=== PATIENT | female | born 1960 | race Two or more races ===

== ENCOUNTER 2020-04-06 13:25 | Emergency (ER) | payer MEDICAID ==
[~2020-04-06] VITALS: Ht 154.9 cm; Wt 63.5 kg
[2020-04-06 13:30] VITALS: BP 145/66
--- NOTE | 2020-04-06 13:30 | NUR ---
ED Nurse Note: Pt picked up from [employer] store and brought in by RA [id number] due to dizziness with no LOC started today. Hx of DM and BS check upon ED arrival 269. Also noted boil on left inner thigh and pt states she had it x 1 week. AAO x4, ambulatory, follows commands and respirations are even and unlabored.
[2020-04-06] MEDS ORDERED: cefTRIAXone 1 GM in NS 55 ML IVPB ONE (13:45)
--- NOTE | 2020-04-06 14:02 | NUR ---
ED Nurse Note: Patient taken for CT and stable.
[2020-04-06 14:04] LABS: BASOPHILS % (AUTO) 2.1 % (0.0-2.0); EOSINOPHILS % (AUTO) 1.2 % (0.0-3.0); HEMATOCRIT 44.7 % (37.0-47.0); HEMOGLOBIN 14.9 G/DL (12.0-16.0); LYMPHOCYTES % (AUTO) 32.4 % (20.0-45.0); MEAN CORPUSCULAR VOLUME 85 FL (80-99); MONOCYTES % (AUTO) 6.4 % (1.0-10.0); NEUTROPHILS % (AUTO) 57.8 % (45.0-75.0); PLATELET COUNT 250 K/UL (150-450); RED BLOOD COUNT 5.28 M/UL (4.20-5.40); RED CELL DISTRIBUTION WIDTH 11.8 % (11.6-14.8); WHITE BLOOD COUNT 9.8 K/UL (4.8-10.8)
--- NOTE | 2020-04-06 14:11 | NUR ---
ED Nurse Note: patient came back from CT in stable condition.
[2020-04-06 14:17] LABS: APPEARANCE,URINE CLOUDY; BILIRUBIN, URINE NEGATIVE (NEGATIVE); GLUCOSE, URINE (UA) 4+ (NEGATIVE); KETONES,URINE NEGATIVE (NEGATIVE); LEUKOCYTE ESTERASE ,URINE NEGATIVE (NEGATIVE); NITRITE,URINE NEGATIVE (NEGATIVE); PH,URINE 5 (4.5-8.0); PROTEIN,URINE 2+ (NEGATIVE); UROBILINOGEN,URINE NORMAL MG/DL (0.0-1.0)
[2020-04-06 14:21] LABS: COLOR,URINE YELLOW
[2020-04-06 14:37] LABS: ANION GAP 10 mmol/L (5-15); BLOOD UREA NITROGEN 19 mg/dL (7-18); CALCIUM 9.6 MG/DL (8.5-10.1); CARBON DIOXIDE 28 MMOL/L (21-32); CHLORIDE 102 MMOL/L (98-107); CREATININE 0.7 MG/DL (0.55-1.30); SODIUM 140 MMOL/L (136-145)
[2020-04-06 14:48] LABS: ALANINE AMINOTRANSFERASE 33 U/L (12-78); ALBUMIN 3.9 G/DL (3.4-5.0); ALBUMIN/GLOBULIN RATIO 0.9 (1.0-2.7); ALKALINE PHOSPHATASE 115 U/L (46-116); ASPARTATE AMINO TRANSFERASE 19 U/L (15-37); BILIRUBIN,TOTAL 1.1 MG/DL (0.2-1.0)
[2020-04-06 14:57] LABS: BILIRUBIN,DIRECT 0.1 MG/DL (0.0-0.3)
--- NOTE | 2020-04-06 15:00 | NUR ---
ED Nurse Note: Consent for Incision and Drainage on left inner thigh obtained. RN and Mathew at the bed side.
--- NOTE | 2020-04-06 15:05 | NUR ---
ED Nurse Note: Mathew/AYDEE explained to patient that she needs to inject a lidocaine to numb the left inner thigh before Incision and draining. Expected pain due to lidocaine injection explained to patient by Mathew.
--- NOTE | 2020-04-06 15:05 | Diagnostic Imaging Report ---
EXAM: XR Chest, 1 View CLINICAL HISTORY: PAIN TECHNIQUE: Frontal view of the chest. COMPARISON: No relevant prior studies available. FINDINGS: Lungs: Unremarkable. The lungs appear clear. No focal consolidation. Pleural space: Unremarkable. The costophrenic angles are sharp. No visible pneumothorax. Heart: Unremarkable. No cardiomegaly. Mediastinum: Unremarkable. Bones/joints: Unremarkable. Tubes, lines and devices: Telemetry leads overlie the thorax. IMPRESSION: No acute radiographic findings.
--- NOTE | 2020-04-06 15:11 | Diagnostic Imaging Report ---
EXAM: CT Head Without Intravenous Contrast CLINICAL HISTORY: DIZZY TECHNIQUE: Axial computed tomography images of the head/brain without intravenous contrast. CTDI is 53.40 mGy and DLP is 1072.20 mGy-cm. One or more of the following dose reduction techniques were used: automated exposure control, adjustment of the mA and/or kV according to patient size, use of iterative reconstruction technique. Coronal reformatted images were created and reviewed. COMPARISON: No relevant prior studies available. FINDINGS: Brain: Unremarkable. No evidence of acute intracranial hemorrhage. No significant white matter disease. No edema. No mass effect or midline shift. Ventricles: Unremarkable. No ventriculomegaly. Bones/joints: Unremarkable. No depressed skull fracture. Soft tissues: Unremarkable. Sinuses: Unremarkable as visualized. Visualized paranasal sinuses are clear. No sinus air-fluid levels. Mastoid air cells: Unremarkable as visualized. No mastoid effusion. IMPRESSION: Unremarkable noncontrast CT of the head/brain.
[2020-04-06] MEDS ORDERED: Ketorolac 30mg Inj IV ONE (15:15)
[2020-04-06 15:30] VITALS: BP 139/84
--- NOTE | 2020-04-06 15:30 | NUR ---
ED Nurse Note: Patient is AAO x4 and wants to leave the ER and AMA form was signed. Mathew/AYDEE and ER charge nurse are aware. Patient is aware of potential complications of not being hospitalized. Removed ID band/IV access. Patient left with all her belongings.
--- NOTE | 2020-04-06 15:31 | Emergency Room Report ---
History of Present Illness General Chief Complaint: Dizziness Source: EMS Present Illness HPI 59-year-old female with history of diabetes, hypertension currently taking medication brought in by Paramedics due to passing out in the middle of the street due to dizziness. Patient does not recall whether she hit her head or not. Patient reports that she started feeling dizzy this morning without any vertigo or chest pain and was on her way to go see her doctor or go to a different hospital as she felt very dizzy and middle of the street on [facility] and passed out. Paramedics were called by bystanders. Denies any chest pain shortness of breath. Denies any dizziness at this moment. Denies any headache and blurred vision. Denies abdominal pain, nausea vomiting diarrhea, cough and congestion. Denies urinary symptoms. Also complains of an abscess in the left inner thigh times few days. Denies any pain radiation tingling numbness. Palpation of the affected area. Up-to-date with tetanus shot. Denies tobacco smoke, drug use, alcohol intake. Patient is neurovascularly intact. Denies any generalized or unilateral weakness. Patient agrees for the abscess to be drained, patient was communicated in [place]. It was explained to the patient by me that it is going to be painful as you injection as needed in order to abdominal the affected area before cutting the abscess the patient agreed and signed a consent form. However after the injections were done patient started screaming and speaking [place] fluently saying" that this is too much pain and she has not been more than 1 injection to numb the area even though she received pain medication". After it was explained to her she feels a pain inside however the surface of her skin is going to be numb for the cutting patient did not believe it, asked for a aerodynamicist, aerodynamicist came to the scene and explained the same to her however patient decided that she did not want to be cut. I told the patient that we can put her on antibiotics she does not want to be covered however patient refused to be on any more antibiotics however IV antibiotics were given to her earlier. I also explained to patient that due to her sudden onset of dizziness and passing out she needs to have further work-up and be admitted to the hospital however patient decided to leave AGAINST MEDICAL ADVICE. Patient had full judgment making decision of leaving AGAINST MEDICAL ADVICE. My nurse Shiela from registration witnessed this conversation Allergies: Coded Allergies: No Known Allergies (Unverified , 04/06/20) COVID-19 Screening Contact w/high risk pt: No Experienced COVID-19 symptoms?: No COVID-19 Testing performed [employer]: Yes - 2 mos ago COVID-19 Screening: Negative COVID-19 COVID-19 Testing Source: unk source Patient History Past Medical History: see triage record Past Surgical History: none Pertinent Family History: none Now: No Immunizations: UTD Reviewed Nursing Documentation: PMH: Agreed; PSxH: Agreed Nursing Documentation-PMH Hx Hypertension: Yes Hx Diabetes: Yes Review of Systems All Other Systems: negative except mentioned in HPI Physical Exam Vital Signs Date Time Temp Pulse Resp B/P (MAP) Pulse Ox O2 Delivery O2 Flow Rate FiO2 04/06/20 13:20 99.3 82 16 130/74 (92) 96 Room Air Sp02 EP Interpretation: reviewed, normal General Appearance: no apparent distress, alert, GCS 15, non-toxic Head: normocephalic, atraumatic Eyes: bilateral eye normal inspection, bilateral eye PERRL ENT: hearing grossly normal, normal pharynx, no angioedema, normal voice Neck: full range of motion, supple/symm/no masses Respiratory: chest non-tender, lungs clear, normal breath sounds, speaking full sentences Cardiovascular #1: regular rate, rhythm, no edema Cardiovascular #2: 2+ carotid (R), 2+ carotid (L), 2+ radial (R), 2+ radial (L) , 2+ dorsalis pedis (R), 2+ dorsalis pedis (L) Gastrointestinal: normal bowel sounds, non tender, soft, non-distended, no guarding, no rebound Rectal: deferred Genitourinary: no CVA tenderness Musculoskeletal: back normal, digits/nails normal, no calf tenderness Neurologic: alert, motor strength/tone normal, oriented x3, sensory intact, responsive, speech normal Psychiatric: judgement/insight normal, memory normal, mood/affect normal, no suicidal/homicidal ideation Skin: other - Abscess left inner thigh Lymphatic: no adenopathy Medical Decision Making PA Attestation All my diagnosis and treatment plans were reviewed ad discussed with my supervising physician Dr. Calero Diagnostic Impression: Primary Impression: Dizziness Additional Impressions: Abscess Left against medical advice ER Course 59-year-old female with history of diabetes, hypertension currently taking medication brought in by Paramedics due to passing out in the middle of the street due to dizziness. Patient does not recall whether she hit her head or not. Patient reports that she started feeling dizzy this morning without any vertigo or chest pain and was on her way to go see her doctor or go to a different hospital as she felt very dizzy and middle of the street on [facility] and passed out. Paramedics were called by bystanders. Denies any chest pain shortness of breath. Denies any dizziness at this moment. Denies any headache and blurred vision. Denies abdominal pain, nausea vomiting diarrhea, cough and congestion. Denies urinary symptoms. Also complains of an abscess in the left inner thigh times few days. Denies any pain radiation tingling numbness. Palpation of the affected area. Up-to-date with tetanus shot. Denies tobacco smoke, drug use, alcohol intake. Patient is neurovascularly intact. Denies any generalized or unilateral weakness. Patient agrees for the abscess to be drained, patient was communicated in [place]. It was explained to the patient by me that it is going to be painful as you injection as needed in order to abdominal the affected area before cutting the abscess the patient agreed and signed a consent form. However after the injections were done patient started screaming and speaking [place] fluently saying" that this is too much pain and she has not been more than 1 injection to numb the area even though she received pain medication". After it was explained to her she feels a pain inside however the surface of her skin is going to be numb for the cutting patient did not believe it, asked for a aerodynamicist, aerodynamicist came to the scene and explained the same to her however patient decided that she did not want to be cut. I told the patient that we can put her on antibiotics she does not want to be covered however patient refused to be on any more antibiotics however IV antibiotics were given to her earlier. I also explained to patient that due to her sudden onset of dizziness and passing out she needs to have further work-up and be admitted to the hospital however patient decided to leave AGAINST MEDICAL ADVICE. Patient had full judgment making decision of leaving AGAINST MEDICAL ADVICE. My nurse Lin and Yang from registration witnessed this conversation Ddx considered but are not limited to: Dizziness due to alcohol intoxication, dizziness unspecified, dizziness due to head trauma, dizziness secondary to cardiac reasons Vital signs: are WNL, pt. is afebrile H&PE are most consistent with: DIzziness, Abscess, Left AMA ORDERS: Sepsis order set was orders patient was noted to be admitted due to presentation and comorbidities, ER intervention: NS bolus, Toradol, Rocephin Patient left AGAINST MEDICAL ADVICE, patient had full judgment upon making the decision of leaving AGAINST MEDICAL ADVICE, the risks of leaving AGAINST MEDICAL ADVICE were explained to the patient such as another episode of syncope , head trauma, cardiac conditioning to be the underlying cause, and worsening of the infection with any antibiotics, however patient made a decision to leave AGAINST MEDICAL ADVICE. EKG Diagnostic Results Rate: normal Rhythm: NSR ST Segments: no acute changes Other Impression No acute ST changes Chest X-Ray Diagnostic Results Chest X-Ray Diagnostic Results : Chest X-Ray Ordered: Yes # of Views/Limited/Complete: 1 View Indication: Other EP Interpretation: Yes PA Xray: Interpretation reviewed, by supervising MD, and agrees with findings. Interpretation: no consolidation, no effusion, no pneumothorax Impression: No acute disease Electronically Signed by: Mathew BAJWA Scribmurali Text FINDINGS: Lungs: Unremarkable. The lungs appear clear. No focal consolidation. Pleural space: Unremarkable. The costophrenic angles are sharp. No visible pneumothorax. Heart: Unremarkable. No cardiomegaly. Mediastinum: Unremarkable. Bones/joints: Unremarkable. Tubes, lines and devices: Telemetry leads overlie the thorax. IMPRESSION: No acute radiographic findings. CT/MRI/US Diagnostic Results CT/MRI/US Diagnostic Results : Imaging Test Ordered: Head CT no contrast Impression FINDINGS: Brain: Unremarkable. No evidence of acute intracranial hemorrhage. No significant white matter disease. No edema. No mass effect or midline shift. Ventricles: Unremarkable. No ventriculomegaly. Bones/joints: Unremarkable. No depressed skull fracture. Soft tissues: Unremarkable. Sinuses: Unremarkable as visualized. Visualized paranasal sinuses are clear. No sinus air-fluid levels. Mastoid air cells: Unremarkable as visualized. No mastoid effusion. IMPRESSION: Unremarkable noncontrast CT of the head/brain. Last Vital Signs Date Time Temp Pulse Resp B/P (MAP) Pulse Ox O2 Delivery O2 Flow Rate FiO2 04/06/20 13:30 99.3 85 16 145/66 99 Room Air Disposition: AGAINST MEDICAL ADVICE Condition: Serious Referrals: [facility],REFERRING (PCP) Patient Instructions: Abscess, Dizziness Mathew Perea Apr 06, 2020 15:31
== END 2020-04-06 15:30 | disposition left against medical advice (07) ==
LOC: EDBD 13:25 → EMR 14:00
DX: R42 Dizziness and giddiness (principal); L02.416 Cutaneous abscess of left lower limb; E11.9 Type 2 diabetes mellitus without complications; I10 Essential (primary) hypertension
CPT/HCPCS: 36415; 70450; 71045; 80053; 80307; 81003; 82248; 83605; 83880; 84484; 85025; 85610; 85730; 87040; 96365; 96375; G0480; J0696; J1885; J7030; Z7502; 99284